=== PATIENT | male | born 1955 ===

== ENCOUNTER → 2022-04-26 11:08 | Outpatient (CLI) | payer MEDICARE, OTHER, SELFPAY ==
--- NOTE | 2022-04-26 | DI.RAD.S_ITS ---
PROCEDURE: FL SHOULDER INJECTION MR/CT RT INDICATIONS: S/P RCR RIGHT SHOULDER COMPARISON: None. TECHNIQUE: The indications, alternatives, benefits, risks, and complications of the procedure were explained to the patient. Written informed consent was obtained and placed in the chart. The shoulder was examined fluoroscopically and a site for needle placement chosen for entry into the glenohumeral joint from an anterior approach. The skin was prepped and draped in a sterile fashion, and 1% lidocaine infiltrated from skin down to joint capsule. A spinal needle was inserted into the glenohumeral joint, and a small amount of iodinated contrast media injected to confirm intra-articular placement of the needle tip. This was followed by approximately 12 mL dilute solution of a gadolinium containing MR contrast agent. The needle was removed and a dressing was applied. The patient was given postprocedural instructions and sent to the MR suite for MR imaging. FINDINGS: A single fluoroscopic spot image demonstrates intra-articular location of injected iodinated contrast. IMPRESSION: Successful fluoroscopically guided administration of dilute Gadolinium solution into the shoulder joint for MR arthrogram. Dictated by: Iron Bonilla M.D. on 04/26/2022 at 12:58 Approved by: Iron Bonilla M.D. on 04/26/2022 at 12:58
--- NOTE | 2022-04-26 | DI.MRI.S_ITS ---
PROCEDURE: MR SHOULDER RT W CON INDICATIONS: S/P RCR RIGHT SHOULDER TECHNIQUE: After the administration of 12 mL of dilute intra-articular Gadolinium contrast, oblique coronal T1 and T2 spin echo with fat saturation, oblique sagittal T1 spin echo with and without fat saturation, oblique sagittal T2 fast spin echo with fat saturation, axial T1 spin echo with fat saturation through the shoulder. COMPARISON: 11/02/2021. FINDINGS: Image quality: Excellent. Rotator cuff: Patient is status post prior rotator cuff tendon repair with postsurgical changes in anterior and superior shoulder soft tissue. There is focal area of full-thickness perforation involving anterior fibers of distal supraspinatus approximately 2 cm from its insertion on the humeral head with approximately 3-4 mm medial retraction of torn tendon fibers and contrast extending into subacromial subdeltoid bursal fluid and acromioclavicular joint. Mid to posterior fibers of distal supraspinatus tendinosis is seen. Distal infraspinatus tendinosis is also noted. Distal subscapularis tendon is intact. Mild supraspinatus muscle atrophy on sagittal images. Bones and bursae: Postsurgical changes are seen in humeral head. No bone marrow contusions or fractures. Expected postsurgical widening of acromioclavicular joint is seen. Glenohumeral joint osteoarthritic changes are noted with joint space narrowing and subchondral sclerosis. Capsule and soft tissues: Signal abnormality, contour irregularity and contrast extension in superior anterior labrum at 1 to 2 o'clock position is seen concerning for subtle superior anterior labral tear. The glenohumeral ligaments appear intact. The long head of the biceps tendon is not seen intra-articularly most consistent with surgical reposition of the tendon along anterior aspect of proximal humerus. The rotator interval appears normal, without fibrosis. The coracohumeral ligament is of normal thickness. No intra-articular bodies. IMPRESSION: 1. Prior rotator cuff tendon repair with postsurgical changes. Expected postsurgical widening of acromioclavicular joint. No acute fracture or dislocation. 2. Focal full-thickness perforation involving anterior fibers of distal supraspinatus approximately 2 cm from its insertion on humeral head with up to 4 mm medial retraction of torn tendon fibers and contrast extending to subacromial subdeltoid bursa and acromioclavicular joint. Tendinosis involving mid to posterior fibers of distal supraspinatus and distal infraspinatus is seen. Distal subscapularis tendon is intact. Mild supraspinatus muscle atrophy. 3. Suggestion of subtle superior anterior labral tear at 1 to 2 o'clock position. 4. Likely postsurgical repositioning of proximal intra-articular portion of long head of biceps. Dictated by: Iron Bonilla M.D. on 04/26/2022 at 13:14 Approved by: Iron Bonilla M.D. on 04/26/2022 at 13:21
== END ==
PROVIDERS: Referring Provider Orthopaedic Surgery; Visit Provider Orthopaedic Surgery
DX: M75.121 Complete rotator cuff tear or rupture of right shoulder, not specified as traumatic (principal)
CPT/HCPCS: 23350; 73222; 77002